=== PATIENT | female | born 1985 | race Caucasian/White ===

== ENCOUNTER 2016-11-05 17:24 | Emergency (ER) | payer SELFPAY ==
[2016-11-05 17:25] VITALS: O2SAT 99
[2016-11-05 17:40] VITALS: RESP 18; TEMP 98.6
[2016-11-05 18:10] VITALS: BP 111/64; PULSE 82
== END 2016-11-05 18:18 | disposition home or self-care (01) | DRG 782 ==
LOC: ED 17:24
DX: O91.011 Infection of nipple associated with pregnancy, first trimester (principal)
CPT/HCPCS: 99282; 99283